=== PATIENT | female | born 1965 | race Caucasian/White ===

== ENCOUNTER 2017-05-10 22:17 | Emergency (ER) | payer OTHER ==
[2017-05-11] MEDS: predniSONE 20 MG TAB PO (01:48)
[2017-05-11] MEDS: OXYCODONE/ACETAMINOPHEN (5/325) TAB PO (01:48)
[2017-05-11] MEDS: VALACYCLOVIR 500 MG TAB PO (02:30)
== END 2017-05-11 04:32 | disposition home or self-care (01) ==
LOC: E/R 22:17
DX: G51.0 Bell's palsy (principal); I10 Essential (primary) hypertension; E11.9 Type 2 diabetes mellitus without complications; E66.9 Obesity, unspecified; Z68.37 Body mass index [BMI] 37.0-37.9, adult; Z79.82 Long term (current) use of aspirin
CPT/HCPCS: 70450; 99284-25